=== PATIENT | female | born 1970 | race Caucasian/White ===

== ENCOUNTER 2018-03-10 02:19 | Emergency (ER) | payer BC ==
[2018-03-10 02:32] VITALS: BP 109/59; PULSE 77
[2018-03-10] MEDS ORDERED: TORAdol 30 mg Injection IM ONE (02:41)
--- NOTE | 2018-03-10 02:41 | ERPHSYRPT ---
- History of Present Illness Time Seen by Provider: 03/10/18 02:36 Source: patient Exam Limitations: no limitations Patient Subjective Stated Complaint: Pt arrives to ER with c/o left ankle injury stating twisted ankle stepping off step ladder wrong. States was able to walk around with shoe on for remainder of evening but when took shoe off to walk states pain became worse. Triage Nursing Assessment: quarter size bruising/swelling to left dorsal aspect of foot. Physician History: The patient is a 47-year-old female with her complaining that she injured her left ankle by twisting it when she stepped off a ladder earlier today. It did not hurt at the time of injury but now it is hurting. She did not take anything for the pain. There is no numbness or tingling. Her past medical history significant for current UTI. Occurred: this evening Reason for Fall: slipped, fell from height Injuries/Pain Location: lower extremity (left ankle and foot) Loss of Consciousness: no loss of consciousness Quality: aching Severity of Pain-Max: moderate Severity of Pain-Current: moderate Modifying Factors: Improves With: nothing Associated Symptoms (Fall): trouble walking Allergies/Adverse Reactions: cephalexin [From Keflex] Allergy (Verified 03/10/18 02:33) "turns red" levofloxacin [From Levaquin] Allergy (Verified 03/10/18 02:36) Hives metronidazole [From Flagyl] Allergy (Verified 03/10/18 02:33) hives sulfamethoxazole [From Bactrim] Allergy (Verified 03/10/18 02:33) Hives trimethoprim [From Bactrim] Allergy (Verified 03/10/18 02:33) Hives Home Medications: Calcium 500 mg PO DAILY 03/10/18 [History] Estradiol [Vivelle-Dot] 1 patch TD DAILY 03/10/18 [History] Mycophenolate Mofetil [Cellcept] 250 mg PO DAILY 03/10/18 [History] Nitrofurantoin Monohyd/M-Cryst [Macrobid 100 mg Capsule] 100 mg PO BID 03/10/18 [History] Ranitidine HCl [Zantac] 150 mg PO DAILY 03/10/18 [History] - Review of Systems Constitutional: No Fever, No Chills Eyes: No Symptoms Ears, Nose, & Throat: No Symptoms Respiratory: No Cough, No Dyspnea Cardiac: No Chest Pain, No Edema, No Syncope Abdominal/Gastrointestinal: No Abdominal Pain, No Nausea, No Vomiting, No Diarrhea Genitourinary Symptoms: No Dysuria Musculoskeletal: Fall, Injury, Joint Pain Skin: No Rash Neurological: No Dizziness, No Focal Weakness, No Sensory Changes Psychological: No Symptoms Endocrine: No Symptoms Hematologic/Lymphatic: No Symptoms Immunological/Allergic: No Symptoms All Other Systems: Reviewed and Negative - Past Medical History Pertinent Past Medical History: Yes Neurological History: No Pertinent History ENT History: No Pertinent History Cardiac History: No Pertinent History Respiratory History: No Pertinent History Endocrine Medical History: Elie's Disease Musculoskeletal History: Rheumatoid Arthritis GI Medical History: No Pertinent History History: No Pertinent History Psycho-Social History: No Pertinent History Female Reproductive Disorders: No Pertinent History - Past Surgical History Past Surgical History: Yes Neuro Surgical History: No Pertinent History Cardiac: No Pertinent History Respiratory: No Pertinent History Gastrointestinal: Cholecystectomy Genitourinary: No Pertinent History Musculoskeletal: No Pertinent History Female Surgical History: Hysterectomy, Section - Social History Smoking Status: Never smoker Exposure to second hand smoke: No Drug Use: none Patient Lives Alone: No - Female History Hx Now: No - Nursing Vital Signs Nursing Vital Signs: Initial Vital Signs Temperature 98.1 F 03/10/18 02:26 Pulse Rate 77 03/10/18 02:26 Respiratory Rate 18 03/10/18 02:26 Blood Pressure 109/59 03/10/18 02:26 Pain Scale Pain Intensity 8 - Trappe Coma Score Best Eye Response (Trappe): (4) open spontaneously Best Verbal Response (Chris): (5) oriented Best Motor Response (Trappe): (6) obeys commands Trappe Total: 15 - Physical Exam General Appearance: no apparent distress, alert Head Injury: no evidence of injury Eye Exam: PERRL/EOMI ENT Exam: airway nml Neck Exam: normal inspection, No tenderness Respiratory/Chest Exam: normal breath sounds, No chest tenderness, No respiratory distress Cardiovascular Exam: normal heart sounds, regular rate/rhythm Gastrointestinal Exam: soft, No tenderness, No distention, No guarding, No ecchymosis Rectal Exam: not done Back Exam: normal inspection, No vertebral tenderness Extremity Exam: swelling (minimal), tenderness (small area of tenderness to lateral aspect of left mid foot and ankle. ) Neurologic Exam: alert, oriented x 3, cooperative, sensation nml, No motor deficits Skin Exam: normal color, warm, dry SpO2 Interpretation: normal Oxygen Delivery: Room Air - Radiology Exams Left Ankle X-ray Interpretation: Interpreted by me, Negative Left Foot X-ray Interpretation: Interpreted by me, Negative Ordered Tests: Active Orders 24 hr Category Date Time Status Cold Application STAT Care 03/10/18 02:41 Active ANKLE (3 VIEWS) Stat Exams 03/10/18 02:41 Ordered FOOT (MINIMUM 3 VIEWS) Stat Exams 03/10/18 02:41 Ordered Medication Summary Discontinued Medications Generic Name Dose Route Start Last Admin Trade Name Patricia PRN Reason Stop Dose Admin Ketorolac Tromethamine 60 mg 03/10/18 02:41 03/10/18 02:47 Toradol 30 Mg Injection IM 03/10/18 02:42 60 mg STAT ONE Administration Ketorolac Tromethamine Confirm 03/10/18 02:44 Toradol 30 Mg Injection Administered 03/10/18 02:45 Dose 60 mg .ROUTE .STK-MED ONE - Progress Progress: improved Counseled pt/family regarding: diagnosis, rad results - Departure Time of Disposition: 03:09 Departure Disposition: Home Clinical Impression: Mild sprain of left ankle Condition: Stable Critical Care Time: No Referrals: BOB WOOD MD [Primary Care Provider] - Additional Instructions: You have a mild sprain of your left ankle. You were given Toradol 60 mg by IM in the ER. Elevate your ankle for the next 2 or 3 days. Apply ice to the area for 15 minutes 3 times a day for the next 2 days. Take Tylenol and ibuprofen as needed for pain. Follow-up in 2-3 days if no improvement.
[2018-03-10] MEDS ORDERED: TORAdol 30 mg Injection ONE (02:44)
--- NOTE | 2018-03-10 08:41 | XRAY ---
Indication: Pain following fall. Comparison: None 3 views of the left ankle demonstrates tiny plantar heel spur. No other bony, articular, or soft tissue abnormalities.
--- NOTE | 2018-03-10 08:51 | XRAY ---
Indication: Pain following fall. Comparison: None 3 nonweightbearing views of the left foot demonstrates tiny plantar heel spur. No other bony, articular, or soft tissue abnormalities.
== END 2018-03-10 03:22 | disposition home or self-care (01) ==
LOC: ED 02:19
DX: S93.402A Sprain of unspecified ligament of left ankle, initial encounter (principal); W18.43XA Slipping, tripping and stumbling without falling due to stepping from one level to another, initial encounter
CPT/HCPCS: 73610; 73630; 96372; 99283; 99284; J1885